=== PATIENT | male | born 1990 | race Caucasian/White ===

== ENCOUNTER 2017-09-22 21:38 | Emergency (ER) | payer OTHER ==
[2017-09-22 22:22] LABS: Bilirubin Negative (Negative); Blood, Urine Negative (Negative); Clarity Clear (Clear); Glucose, Urine (Dipstick) Negative (Negative); Leukocyte Negative (Negative); Nitrite Negative (Negative); Protein, Urine (Dipstick) Negative (Neg-Trace); Specific Gravity, Urine 1.025 (1.005-1.030)
[2017-09-22 22:37] LABS: ALT (SGPT) 28 U/L (8-55); AST (SGOT) 23 U/L (5-34); Albumin 4.6 g/dL (3.5-5.0); Alkaline Phosphatase 68 U/L (40-150); Anion Gap 13 mmol/L (10-20); BUN (Urea Nitrogen) 11 mg/dL (8.9-20.6); Bilirubin, Total 0.4 mg/dL (0.2-1.2); Calc. Creatinine Clearance 0 mL/min (70-130); Calcium 9.4 mg/dL (7.8-10.44); Carbon Dioxide 27 mmol/L (22-29); Chloride 104 mmol/L (98-107); Estimated GFR-MDRD Greater than 90; Globulin 2.9 g/dL (2.4-3.5); Glucose 92 mg/dL (70-105); Potassium 4.3 mmol/L (3.5-5.1); Protein, Total 7.5 g/dL (6.0-8.3); Sodium 140 mmol/L (136-145)
[2017-09-22 22:48] LABS: #Basophils 0.1 thou/uL (0.0-0.2); #Eosinphils 0.1 thou/uL (0.0-0.7); #Lymphocytes 2.8 thou/uL (1.20-3.40); #Monocytes 0.7 thou/uL (0.11-0.59); %Eosinophils 1.2 % (0.0-10.0); %Lymphocytes 26.3 % (21.0-51.0); %Monocytes 6.4 % (0.0-10.0); %Neutrophils 65.1 % (42.0-75.0); Hemoglobin 14.4 g/dL (14.0-18.0); Mean Corpuscular HGB CONC 33.6 g/dL (32.0-36.0); Mean Corpuscular Hemoglobin 29.1 pg (27.0-31.0); Mean Corpuscular Volume 86.6 fl (80.0-94.0); Mean Platelet Volume 6.5 fL (7.4-10.4); Platelet Count 238 thou/uL (130-400); RBC Distribution Width 11.8 % (11.5-14.5); Red Blood Cell (RBC) Count 4.95 mill/uL (4.70-6.10); White Blood Cell (WBC) Count 10.8 thou/uL (4.8-10.8)
[2017-09-22] MEDS ORDERED: Lidocaine Viscous Sol 2% 15 ml UD Cup ONE (23:09)
[2017-09-22] MEDS ORDERED: Mag-Al Plus 1200 MG/1200 MG/120 MG/30 ML UDCUP ONE (23:09)
== END 2017-09-22 23:15 | disposition home or self-care (01) ==
LOC: SCSER 21:38
DX: K25.9 Gastric ulcer, unspecified as acute or chronic, without hemorrhage or perforation (principal); I10 Essential (primary) hypertension
CPT/HCPCS: 80053; 81003; 82150; 83690; 85025; 93005

== ENCOUNTER 2018-05-14 11:03 | Day surgery (SDC) | payer OTHER ==
[2018-05-11 10:01] VITALS: BMI 34.2
[2018-05-14] MEDS ORDERED: Lidocaine 1% PF 5 ML VIAL ONE (14:59)
[2018-05-14] MEDS ORDERED: PROPOFOL 200 MG/20 ML VIAL ONE (14:59)
--- NOTE | 2018-05-14 20:17 | OP ---
DATE OF PROCEDURE: 05/14/2018 This is a GI endoscopy note. DISTRIBUTION SPEC SURGEON: None. PROCEDURE PERFORMED: Esophagogastroduodenoscopy with biopsies. INDICATION: Epigastric pain. MEDICATIONS: See Anesthesia record. FINDINGS: After discussion of the risks, benefits, and alternatives of the procedure, informed consent was obtained and witnessed. Pre-endoscopic cardiopulmonary examination was satisfactory. Time-out was performed before sedation was achieved. Sedation was achieved with Anesthesia assistance in the endoscopy unit. A Pentax adult upper endoscope was placed into the oropharynx and passed through the cricopharyngeus under direct visualization. The esophageal mucosa appeared normal throughout with a normal-appearing Z-line at 45 cm from the incisors. The endoscope was then advanced into the stomach. Forward and retroflexed views of the entire gastric mucosa were obtained. There is some mild patchy erythema in the gastric body. No evidence of any erosions or ulcerations. I did obtain biopsies from the gastric antrum and body to rule out H. pylori infection. The endoscope was advanced through the pylorus and then the first and second portions of the duodenum, which appeared normal. The upper endoscope was then completely withdrawn, and the patient allowed to recover. The patient tolerated the procedure well. There were no immediate postprocedure complications. IMPRESSION: 1. Mild patchy erythema in the gastric body, biopsied. 2. Otherwise normal esophagogastroduodenoscopy. RECOMMENDATIONS: 1. Follow up pathology and gastric biopsies if H. pylori is present, treat with triple therapy and confirm eradication. 2. Continue with daily oral proton pump inhibitor for now. This controls his symptoms very well. Job ID: [id number]
== END 2018-05-14 14:10 | disposition home or self-care (01) ==
LOC: SDC 11:03
PROVIDERS: ATTEND Internal Medicine
PROC: 0DB68ZX Excision of Stomach, Via Natural or Artificial Opening Endoscopic, Diagnostic (ICD-10-PCS; principal; 2018-05-14)
DX: K29.50 Unspecified chronic gastritis without bleeding (principal); B96.81 Helicobacter pylori [H. pylori] as the cause of diseases classified elsewhere; Z79.899 Other long term (current) drug therapy
CPT/HCPCS: 88305; 88312; J2001; J2704

== ENCOUNTER 2019-10-21 13:42 | Outpatient (CLI) | payer OTHER ==
--- NOTE | 2019-10-21 14:04 | RAD ---
EXAM: 3 views of the left wrist HISTORY: Wrist pain COMPARISON: None FINDINGS: 3 views of the left wrist shows no evidence of acute fracture or dislocation. No soft tissu e swelling is seen. No degenerative changes are present. IMPRESSION: No evidence of acute osseous abnormality.
== END 2019-10-21 13:43 | disposition home or self-care (01) ==
LOC: BICRAD 13:42
PROVIDERS: ATTEND Family Medicine
DX: M25.532 Pain in left wrist (principal)

== ENCOUNTER 2019-10-31 08:25 | Outpatient (CLI) | payer OTHER ==
--- NOTE | 2019-10-31 08:46 | RAD ---
LEFT WRIST 3 VIEWS: HISTORY: Left wrist pain FINDINGS: No acute fracture or dislocation is identified. No interval change is seen since 10/21/2019. If there is concern for cartilaginous or other soft tissue injury, further evaluation MRI would be he lpful.
== END 2019-10-31 08:26 | disposition home or self-care (01) ==
LOC: BICRAD 08:25
PROVIDERS: ATTEND Family Medicine
DX: M25.532 Pain in left wrist (principal)